=== PATIENT | female | born 1980 | race Two or more races ===

== ENCOUNTER 2020-12-23 23:10 | Emergency (ER) | payer OTHER ==
[~2020-12-23] VITALS: Ht 154.9 cm; Wt 63.6 kg
[2020-12-23 23:12] VITALS: BP 150/100
[2020-12-24] MEDS ORDERED: SODIUM CHLORIDE 0.9% 1,000 ML IV ONE (00:15)
[2020-12-24] MEDS ORDERED: DiphenhydrAMINE HCL 25 MG CAPSULE PO ONE (00:15)
[2020-12-24] MEDS ORDERED: KETOROLAC TROMETHAMINE 30 MG/ML VIAL IVP ONE (00:15)
[2020-12-24] MEDS ORDERED: METOCLOPRAMIDE HCL 5 MG/ML 2 ML VIAL IVP ONE (00:15)
[2020-12-24 00:44] LABS: COVID AG,FIA SOURCE NASOPHARYNGEAL
== END 2020-12-24 03:05 | disposition home or self-care (01) ==
LOC: EMS 23:11
DX: G43.909 Migraine, unspecified, not intractable, without status migrainosus (principal); F12.90 Cannabis use, unspecified, uncomplicated; Z20.822 Contact with and (suspected) exposure to COVID-19
CPT/HCPCS: 81025; 87426; 96361; 96374; 96375; 99284; J1885; J2765; J7030; U0003

== ENCOUNTER 2021-03-08 14:03 | Emergency (ER) | payer OTHER ==
[~2021-03-08] VITALS: Ht 154.9 cm; Wt 54.5 kg
[2021-03-08] MEDS ORDERED: SULFAMETHOX/TRIMETH DS 800-160 MG/TABLET PO ONE (16:45)
[2021-03-08] MEDS ORDERED: CEPHALEXIN MONOHYDRATE 500 MG CAPSULE PO ONE (16:45)
[2021-03-08] MEDS ORDERED: LIDOCAINE 1% 10 ML VIAL ID ONE (16:45)
[2021-03-08] MEDS ORDERED: HYDROCODONE/ACETAMINOPHEN 5-325 MG TABLET PO ONE (16:45)
[2021-03-08] MEDS ORDERED: CEPH500C3 PO (18:15)
[2021-03-08] MEDS ORDERED: SULF-261 PO (18:15)
[2021-03-08] MEDS ORDERED: TRAM50TA4 PO (18:15)
[2021-03-08 18:29] VITALS: BP 118/80
== END 2021-03-08 18:31 | disposition home or self-care (01) ==
LOC: EMS 14:06
DX: L02.01 Cutaneous abscess of face (principal)
CPT/HCPCS: 10060; 99284; J3490

== ENCOUNTER 2021-03-11 13:53 | Emergency (ER) | payer OTHER ==
[~2021-03-11] VITALS: Ht 154.9 cm; Wt 55.4 kg
[~2021-03-11 13:53] MED LIST: CEPH500C3 PO; SULF-261 PO; TRAM50TA4 PO
[2021-03-11 14:26] VITALS: BP 115/59
== END 2021-03-11 16:14 | disposition home or self-care (01) ==
LOC: EMS 13:57
DX: L02.01 Cutaneous abscess of face (principal); F20.9 Schizophrenia, unspecified
CPT/HCPCS: 99281; Z7502

== ENCOUNTER 2021-04-27 18:57 | Emergency (ER) | payer OTHER ==
[~2021-04-27] VITALS: Ht 154.9 cm; Wt 30.0 kg
[2021-04-27] MEDS ORDERED: LIDOCAINE 1% 10 ML VIAL IM ONE (20:30)
[2021-04-27] MEDS ORDERED: BUPIVACAINE HCL/PF 0.25% 10 ML VIAL IM ONE (20:30)
[2021-04-27 21:05] VITALS: BP 119/74
== END 2021-04-27 21:09 | disposition home or self-care (01) ==
LOC: EMS 19:01
DX: S62.616A Displaced fracture of proximal phalanx of right little finger, initial encounter for closed fracture (principal); J45.909 Unspecified asthma, uncomplicated; Y04.0XXA Assault by unarmed brawl or fight, initial encounter; Y93.89 Activity, other specified; Y92.89 Other specified places as the place of occurrence of the external cause; Y99.8 Other external cause status
CPT/HCPCS: 26725; 73130; 96372; 99284; J3490 ×2; 99283

== ENCOUNTER 2021-05-23 17:59 | Emergency (ER) | payer OTHER ==
[~2021-05-23] VITALS: Ht 154.9 cm; Wt 54.5 kg
[2021-05-23] MEDS ORDERED: pain med PO (18:02)
[2021-05-23 18:26] VITALS: BP 133/79
[2021-05-23] MEDS ORDERED: ARIP10TA38 PO (18:52)
[2021-05-23] MEDS ORDERED: TRAZ-252 PO (18:52)
[2021-05-23] MEDS ORDERED: CITA-144 PO (18:52)
[2021-05-23] MEDS ORDERED: NAPR-1025 PO (18:52)
[2021-05-23] MEDS ORDERED: CEPH-558 PO (18:59)
== END 2021-05-23 19:11 | disposition home or self-care (01) ==
LOC: EMS 17:59
DX: L03.213 Periorbital cellulitis (principal); J45.909 Unspecified asthma, uncomplicated; F20.9 Schizophrenia, unspecified; G43.909 Migraine, unspecified, not intractable, without status migrainosus
CPT/HCPCS: 96372; 99283; J0690

== ENCOUNTER 2021-06-07 07:19 | Emergency (ER) | payer OTHER ==
[~2021-06-07] VITALS: Ht 154.9 cm; Wt 50.0 kg
[~2021-06-07 07:19] MED LIST changes: +ARIP10TA38 PO; +CEPH-558 PO; -CEPH500C3 PO; +CITA-144 PO; +NAPR-1025 PO; -SULF-261 PO; -TRAM50TA4 PO; +TRAZ-252 PO
[2021-06-07] MEDS ORDERED: TraMADol HCL 50 MG TABLET PO ONE (07:45)
[2021-06-07 09:42] VITALS: BP 135/78
[2021-06-07] MEDS ORDERED: TRAM50TA4 PO (09:43)
== END 2021-06-07 09:54 | disposition home or self-care (01) ==
LOC: EMS 07:19
DX: S22.42XA Multiple fractures of ribs, left side, initial encounter for closed fracture (principal); J45.909 Unspecified asthma, uncomplicated; F20.9 Schizophrenia, unspecified; W19.XXXA Unspecified fall, initial encounter; Y93.89 Activity, other specified; Y92.89 Other specified places as the place of occurrence of the external cause; Y99.8 Other external cause status
CPT/HCPCS: 71101; 99283

== ENCOUNTER 2021-06-24 19:32 | Emergency (ER) | payer OTHER ==
[~2021-06-24] VITALS: Ht 154.9 cm; Wt 55.9 kg
[~2021-06-24 19:32] MED LIST changes: -ARIP10TA38 PO; -CEPH-558 PO; -CITA-144 PO; -NAPR-1025 PO; +TRAM50TA4 PO; -TRAZ-252 PO
[2021-06-24] MEDS ORDERED: GABAPENTIN 300 MG CAPSULE PO ONE (20:30)
[2021-06-24] MEDS ORDERED: KETOROLAC TROMETHAMINE 30 MG/ML VIAL IM ONE (20:30)
[2021-06-24] MEDS ORDERED: METHOCARBAMOL 500 MG TABLET PO ONE (20:30)
[2021-06-25 00:27] VITALS: BP 138/87
[2021-06-25] MEDS ORDERED: KETOROLAC TROMETHAMINE 30 MG/ML VIAL IVP ONE (01:45)
[2021-06-25] MEDS ORDERED: ACETAMINOPHEN 500 MG TABLET PO ONE (01:45)
[2021-06-25] MEDS ORDERED: KETOROLAC TROMETHAMINE 30 MG/ML VIAL IM ONE (02:00)
== END 2021-06-25 05:02 | disposition home or self-care (01) ==
LOC: EMS 19:35
DX: S27.0XXA Traumatic pneumothorax, initial encounter (principal); S22.41XA Multiple fractures of ribs, right side, initial encounter for closed fracture; S39.012A Strain of muscle, fascia and tendon of lower back, initial encounter; J45.909 Unspecified asthma, uncomplicated; F32.A Depression, unspecified; F20.9 Schizophrenia, unspecified; G43.909 Migraine, unspecified, not intractable, without status migrainosus; F17.210 Nicotine dependence, cigarettes, uncomplicated; W19.XXXA Unspecified fall, initial encounter; Y93.89 Activity, other specified; Y92.89 Other specified places as the place of occurrence of the external cause; Y99.8 Other external cause status
CPT/HCPCS: 70450; 71101; 71250; 72125; 72128; 96372 ×2; 99285; G0238; J1885 ×2

== ENCOUNTER 2021-07-11 11:50 | Emergency (ER) | payer OTHER ==
[~2021-07-11] VITALS: Ht 160 cm; Wt 57.7 kg
[2021-07-11] MEDS ORDERED: HYDROCODONE/ACETAMINOPHEN 5-325 MG TABLET PO ONE (12:30)
[2021-07-11 13:51] VITALS: BP 127/80
[2021-07-11] MEDS ORDERED: IBUP-2070 PO (14:12)
[2021-07-11] MEDS ORDERED: ACET-66 PO (14:12)
== END 2021-07-11 14:26 | disposition home or self-care (01) ==
LOC: EMS 11:50
DX: S52.602A Unspecified fracture of lower end of left ulna, initial encounter for closed fracture (principal); J45.909 Unspecified asthma, uncomplicated; F32.9 Major depressive disorder, single episode, unspecified; F17.210 Nicotine dependence, cigarettes, uncomplicated; X50.1XXA Overexertion from prolonged static or awkward postures, initial encounter; Y93.72 Activity, wrestling; Y92.89 Other specified places as the place of occurrence of the external cause; Y99.8 Other external cause status
CPT/HCPCS: 99284; 73090-TC; 73130-TC; Z7502; Z7610

== ENCOUNTER 2022-05-03 00:26 | Emergency (ER) | payer OTHER ==
[~2022-05-03] VITALS: Ht 154.9 cm; Wt 54.5 kg
[~2022-05-03 00:26] MED LIST changes: +ACET-66 PO; +IBUP-1492 PO; -TRAM50TA4 PO
[2022-05-03 00:33] VITALS: BP 150/82
[2022-05-03] MEDS ORDERED: KETOROLAC TROMETHAMINE 60 MG/2 ML VIAL IM ONE (01:00)
[2022-05-03] MEDS ORDERED: IBUP-1554 PO (02:40)
== END 2022-05-03 03:02 | disposition home or self-care (01) ==
LOC: EMS 00:28
DX: S52.502A Unspecified fracture of the lower end of left radius, initial encounter for closed fracture (principal); J45.909 Unspecified asthma, uncomplicated; F32.A Depression, unspecified; F20.9 Schizophrenia, unspecified; G43.909 Migraine, unspecified, not intractable, without status migrainosus; F17.210 Nicotine dependence, cigarettes, uncomplicated; W31.89XA Contact with other specified machinery, initial encounter; Y93.89 Activity, other specified; Y92.89 Other specified places as the place of occurrence of the external cause; Y99.8 Other external cause status
CPT/HCPCS: 99283; 73110; 29125; 96372; J1885

== ENCOUNTER 2023-09-23 18:17 | Emergency (ER) | payer OTHER ==
[~2023-09-23] VITALS: Ht 160 cm; Wt 104.5 kg
[~2023-09-23 18:17] MED LIST changes: +IBUP-1554 PO
[2023-09-23 18:34] VITALS: BP 112/76; PULSE 124; RESP 18; TEMP 100.4
[2023-09-23 18:59] LABS: APPEARANCE,URINE HAZY (CLEAR); BILIRUBIN,URINE NEGATIVE (NEGATIVE); COLOR,URINE YELLOW (YELLOW); GLUCOSE, URINE (UA) NEGATIVE (NEGATIVE); KETONES,URINE NEGATIVE (NEGATIVE); LEUKOCYTE ESTERASE ,URINE TRACE (NEGATIVE); NITRATE,URINE NEGATIVE (NEGATIVE); OCCULT BLOOD,URINE NEGATIVE (NEGATIVE); PROTEIN,URINE TRACE mg/dL (NEGATIVE); UROBILINOGEN,URINE <=1.0 mg/dL (<=1.0)
[2023-09-23 19:12] LABS: RBC,URINE 0-2 /HPF (0-2)
[2023-09-23 19:13] LABS: BACTERIA,URINE Moderate /HPF (None Seen); SQUAMOUS EPITHELIAL CELL,UR Few /LPF (None Seen); YEAST,URINE Few /HPF (None Seen)
[2023-09-23 19:45] LABS: INFLUENZA A-RTPCR,COMBO NEGATIVE (NEGATIVE); INFLUENZA B-RTPCR,COMBO NEGATIVE (NEGATIVE); RESPIRATORY SYNCYTIAL VRS-PCR NEGATIVE (NEGATIVE); SARS COVID19 RTPCR, COMBO NEGATIVE (NEGATIVE)
== END 2023-09-23 21:52 | disposition left against medical advice (07) ==
LOC: EMS 18:17
DX: M54.9 Dorsalgia, unspecified (principal); R05.9 Cough, unspecified; R50.9 Fever, unspecified; Z20.822 Contact with and (suspected) exposure to COVID-19; Z53.21 Procedure and treatment not carried out due to patient leaving prior to being seen by health care provider
CPT/HCPCS: 0241U; 87186; 87086; 81001

== ENCOUNTER 2024-01-18 16:12 | Emergency (ER) | payer OTHER ==
[~2024-01-18] VITALS: Ht 154.9 cm; Wt 70.5 kg
[2024-01-18 16:19] VITALS: BP 136/88; PULSE 110; RESP 18; TEMP 98.7; O2SAT 99
== END 2024-01-18 17:52 | disposition left against medical advice (07) ==
LOC: EMS 16:12
DX: R51.9 Headache, unspecified (principal); Z53.21 Procedure and treatment not carried out due to patient leaving prior to being seen by health care provider